=== PATIENT | male | born 1975 ===

== ENCOUNTER 2024-04-15 11:51 | Outpatient (REF) | payer OTHER, SELFPAY ==
[2024-04-15 17:03] LABS: ALT 27 U/L (16-63); AST 15 U/L (15-37); Albumin 4.3 g/dL (3.4-5.0); Alkaline Phosphatase 69 U/L (46-116); Anion Gap 6.7 mmol/L (3-11); BUN 21 mg/dL (7-18); Bilirubin, Total 1.53 mg/dL (0.2-1.0); CO2 29.3 mmol/L (21.0-32.0); CREATININE 1.3 mg/dL (0.70-1.30); Calcium 9.3 mg/dL (8.5-10.1); Calculated LDL 105 mg/dL (<100); Chloride 107 mmol/L (98-107); Cholesterol 202 mg/dL (<200); Estimated GFR 66.93 (mL/min/1.73m2); Glucose 100 mg/dL (74-106); HDL Cholesterol 67 mg/dL (40-60); Potassium 4.7 mmol/L (3.5-5.1); Sodium 143 mmol/L (136-145); Total Protein 7.4 g/dL (6.4-8.2); Triglyceride 153 mg/dL (<150)
== END 2024-04-15 11:52 | disposition home or self-care (01) ==
LOC: NCHCN 11:51
PROVIDERS: Visit Provider Student in an Organized Health Care Education/Training Program
DX: Z13.220 Encounter for screening for lipoid disorders (principal); Z13.1 Encounter for screening for diabetes mellitus
CPT/HCPCS: 80053; 80061